=== PATIENT | female | born 1935 | race Caucasian/White ===

== ENCOUNTER → 2016-10-23 | Outpatient (CLI) | payer OTHER ==
--- NOTE | 2016-10-25 09:00 | DI ---
RIGHT FOOT, 10/23/2016 3:48 PM: Clinical History: Hallux valgus of the right foot. Previous Exam: 08/09/2014. 3 weightbearing views are submitted. There is no acute soft tissue, osseous, or joint abnormality. Th ere is a bunion. Mild hallux valgus is present. Reading: Bunion with a mild hallux valgus deformity.
== END ==
LOC: MOB LAB 16:49
PROVIDERS: ATTEND Podiatrist Foot & Ankle Surgery
DX: M20.11 Hallux valgus (acquired), right foot (principal); M20.5X1 Other deformities of toe(s) (acquired), right foot; M21.611 Bunion of right foot
CPT/HCPCS: 73630; 99213

== ENCOUNTER 2016-11-14 10:00 | Day surgery (SDC) | payer OTHER ==
[~2016-11-14 10:00] MED LIST: Lactated Ringers 1,000 ML PRIMARY IV ONE; ceFAZolin Inj 2gm (Premix) 50 ML IV ONE
--- NOTE | 2016-11-14 10:28 | EKG ---
[address] [address] Measurements Intervals [place] Rate: 72 P: 69 LA: 160 QRS: 68 QRSD: 83 T: 48 QT: 424 QTc: 449 Interpretive Statements SINUS RHYTHM POSSIBLE LEFT ATRIAL ENLARGEMENT [-0.1mV P WAVE IN V1/V2] No previous ECG available for comparison Electronically Signed On 11-14-16 10:29:52 MDT by Robert Sams [email or web address]
[2016-11-14] MEDS: LIDOCAINE W/ SODIUM BICARB 0.5 ML SYR ONE ×2 (10:32→12:20)
[2016-11-14] MEDS ORDERED: MIDAZOLAM 5 MG/1 ML ONE (12:04)
[2016-11-14] MEDS ORDERED: LIDOCAINE 2%/ EPI 1:200,000 - 20 ML VIAL ONE (12:04)
[2016-11-14] MEDS ORDERED: DEXAMETHASONE SOD PHOSPHATE 4 MG/1 ML VIAL ONE (12:04)
[2016-11-14] MEDS ORDERED: BUPivacaine Inj 0.5% PF (5mg/ml) 30ml vial ONE (12:04)
[2016-11-14] MEDS ORDERED: fentaNYL Inj 100 MCG/2 ML VIAL ONE (12:05)
--- NOTE | 2016-11-14 12:37 | CRNA.PROCE ---
Nerve Block Documentation - - Type of Nerve Block Used: Right Popliteal Fossa Block Position for Nerve Block: Prone Moniters Used During Block: EKG, SPO2, NIBP Oxygen Sumpplented: Yes Sedation Used - Enter Amount in Comment Field: Midazolam (mg): Yes (3), Fentanyl (mcg): Yes (50) Skin Prep Used: ChloroPrep Draped: No Technique: Nerve Stimulator Nerve Block Needle Used: 80 mm ProBlk II Stimulation Hz: 2 Stimulation Staring mA: 1.2 Stimulation Ending mA: 0.48 Local Anesthetic - Enter Amt in Comment Field: 0.5 % Bupivacaine Plain (mL): Yes (20ml), 2 % Xylocaine with Epinephrine 1:200,000 (mL): Yes (20ml) Additives to Nerve Blocks: Dexamethasone (mg): Yes (2ml(8mg))
[2016-11-14] MEDS ORDERED: BUPivacaine Liposome/PF (Exparel) Inj 20ml vial INFIL ONE ×2 (13:21→13:48)
[2016-11-14] MEDS ORDERED: Lactated Ringers 1,000 ML PRIMARY IV ONE (13:37)
[2016-11-14] MEDS ORDERED: HYDROcodone-APAP 10 MG-325 MG TABLET PO PRN (14:10)
[2016-11-14] MEDS ORDERED: NORMAL SALINE 10 ML SYRINGE FLUSH IVP PRN (14:10)
--- NOTE | 2016-11-14 14:26 | GEN.OPNOTE ---
Operative Report Surgeon: Christiano French DPM Anesthesia Type: Regional, Local (with post operative exparel.), MAC Anesthesia Provider: Braden Camp CRNA Surgery Date: 11/14/16 Preoperative Diagnosis: Right foot hallux valgus. 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 Postoperative Diagnosis: Right foot hallux valgus. 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 Procedure: 1. Right Renan osteotomy. 2. Right 4th toe arthrodesis. Estimated Blood Loss (mL): 0 (pneumatic cuff to the right ankle at 250 mmHg pressure for a total time of 60 minutes) Fluids: 2 g Ancef given preoperatively. 1200 mL lactated Ringer's. Postoperative exparel injected Complications: None Description of Procedure: The patient was brought to the operating room and placed in the supine position. They had already been given a popliteal block of the right lower extremity, and MAC was continued. The right foot was prepped and draped in the usual sterile fashion. A timeout was performed. A preoperative C-arm radiograph was taken to help delineate the area of concern, and this was marked on the foot. The foot was then exsanguinated with an elastic Esmarch, after which a pneumatic cuff was inflated about the ankle to 250 mmHg pressure. When the great toe flexed it would go under the second toe and into valgus. To correct the distal articular set angle an Renan osteotomy was planned for the proximal phalanx. An incision of the medial proximal phalanx was made longitudinally. The incision was deepened on the medial aspect of the great toe to the bone of the proximal phalanx. The periosteum was reflected. A wedge osteotomy was performed including maintaining the lateral cortical hinge under C-arm. This osteotomy was fixated under C-arm with a 12 mm 12 mmFUSEFORCE Nitinol Staple from [employer]. The wound was irrigated and then subcutaneous tissues were closed with 4-0 Vicryl. This was reinforced with Mastisol and Steri-Strips. Tendon was now directed to the right fourth toe which on the patient's history had had an arthroplasty years ago. Patient's toe wound now roll into a adductovarus hammertoe was causing her significant ongoing pain. She has asked to straighten the toe. Incision was made over the proximal interphalangeal joint and carried down to the extensor apparatus. The extensor tendons were transected and the joint exposed. Utilizing a sagittal saw the distal head of the proximal phalanx and cartilaginous plate of the middle phalanx were removed. The wound was irrigated. A K wire was then ran down the middle phalanx and out the distal phalanx under C-arm guidance. Utilizing the DARTFIRE cannulated screw system from [employer], the cannulated drill was then driven down the distal, medial, and into the proximal phalanx. A 24 mm X 2.5 mm headless cannulated screw was selected and used to fixate the right fourth toe. This was performed under C-arm guidance. The wound was irrigated. The extensor apparatus is then closed with 4-0 Vicryl. And the distal toe tip , and dorsal fourth toe incision was closed in full-thickness fashion with 4-0 nylon this was reinforced with Mastisol and Steri-Strips. The patient tolerated the procedure well. The pneumatic cuff was released from the right ankle after 60 minutes total time. The return was noted to all toes. A dressing consisted of Xeroform, gauze, Coban, Kerlix and a Coban wrap. She was returned recovery.
[2016-11-14 17:03] VITALS: RESP 16; TEMP 98.6
--- NOTE | 2016-11-17 09:50 | OPS CRUTCH ---
Diagnosis : Status Post Right Bunionectomy/4th Toe Arthroplasty Referral Reason: Gait Training O: Patient was instructed in the use of standard walker with gait belt, both on level surfaces and on stairs, non weight-bearing. P: No further therapy is indicated at this time. MTDD
--- NOTE | 2016-11-17 10:52 | DI ---
History: hallux valgus deformity Comparison: None Findings: Osteotomy site the proximal phalanx of the great toe is transfixed by a single staple. Alignment is a natomic A lag screw extends through the PIP joint of the fourth toe. Alignment is good Impression Postoperative changes in the proximal phalanx of the great toe, and in the fourth toe.
== END 2016-11-14 16:24 | disposition home or self-care (01) ==
LOC: SDSC 10:00
PROVIDERS: ATTEND Podiatrist Foot & Ankle Surgery
DX: M20.11 Hallux valgus (acquired), right foot (principal); M20.5X1 Other deformities of toe(s) (acquired), right foot; M79.671 Pain in right foot
CPT/HCPCS: 28285; 28298; 73630; 76000; 93005; 93010; 97116; C9290; J0690; J1100; J2250; J2704; J3010; J3490; J7120

== ENCOUNTER → 2016-11-20 | Outpatient (CLI) | payer OTHER | LOC: MMPC 10:00 | PROVIDERS: ATTEND Podiatrist Foot & Ankle Surgery | DX: Z98.1 Arthrodesis status (principal) ==